=== PATIENT | male | born 1985 | race Caucasian/White ===

== ENCOUNTER 2018-12-11 02:20 | Outpatient (CLI) | payer MEDICARE, MEDICAID, SELFPAY | END 2018-12-11 02:40 | PROVIDERS: PCP Family Medicine; Visit Provider Internal Medicine Endocrinology, Diabetes & Metabolism | DX: E23.0 Hypopituitarism (principal) | CPT/HCPCS: 36415; 82533 ==

== ENCOUNTER 2020-11-25 00:33 | Outpatient (CLI) | payer MEDICARE, MEDICAID, SELFPAY ==
[2020-11-25 13:26] LABS: TSH 3.19 uIU/mL (0.36-3.74)
[2020-11-29 09:31] LABS: Testosterone, Total 476 ng/dL (240-950)
[2020-12-02 18:13] LABS: AM Cortisol 8.8 mcg/dL (5-25)
== END 2020-11-25 00:53 ==
PROVIDERS: PCP Family Medicine; Visit Provider Family Medicine
DX: E23.0 Hypopituitarism (principal); E29.1 Testicular hypofunction
CPT/HCPCS: 36415; 82530; 82533; 84403; 84439; 84443

== ENCOUNTER 2021-07-20 02:47 | Outpatient (CLI) | payer MEDICARE, MEDICAID, SELFPAY ==
[2021-07-20 12:59] LABS: FREE T4 1.07 ng/dL (0.76-1.46); TSH 1.35 uIU/mL (0.36-3.74)
[2021-07-20 13:15] LABS: Vitamin D 25 Total 36.4 ng/mL (30-100)
[2021-07-24 12:36] LABS: Testosterone, Total 567 ng/dL (240-950)
== END 2021-07-20 02:48 | disposition home or self-care (01) ==
LOC: LOS 02:47
PROVIDERS: PCP Family Medicine; Visit Provider Family Medicine
DX: E23.0 Hypopituitarism; E34.9 Endocrine disorder, unspecified
CPT/HCPCS: 36415; 82306; 82533; 84403; 84439; 84443

== ENCOUNTER 2021-11-16 04:18 | Outpatient (CLI) | payer MEDICARE, MEDICAID, SELFPAY ==
[2021-11-16 08:44] LABS: Abs Immature Grans 0.07 10^3/uL (0.0-0.06); Absolute Basophil Count 0.07 10^3/uL (0.0-0.2); Absolute Lymphocyte Count 2.02 10^3/uL (1.2-3.4); Absolute Monocyte Count 0.64 10^3/uL (0.1-0.8); Absolute Neutrophil Count 3.72 10^3/uL (1.2-6.7); Eosinophils % 7.1; HCT 50.5 % (40.0-50.0); HGB 17.6 g/dL (13.5-17.5); Lymphocytes % 28.8; MCH 30.9 pg (27.0-33.0); MCHC 34.9 % (32.0-36.0); MCV 88.8 fL (80-95); MPV 9.1 fL (8.0-11.0); Monocytes % 9.1; Nucleated RBC 0 %; Platelet Count 202 10^3/uL (130-400); RBC 5.69 10^6/uL (4.36-5.78); RDW 11.7 % (11.8-14.1); RDW-SD 37.8 fL; WBC 7.02 10^3/uL (4.4-10.8)
[2021-11-16 09:24] LABS: ALT 53 U/L (16-63); AST 27 U/L (15-37); Albumin 3.9 g/dL (3.4-5.0); Alkaline Phosphatase 66 U/L (46-116); Anion Gap 9.2 mmol/L (3-11); BUN 9 mg/dL (7-18); Bilirubin, Total 0.8 mg/dL (0.2-1.0); CO2 26.8 mmol/L (21.0-32.0); CREATININE 1.3 mg/dL (0.70-1.30); Calcium 9.1 mg/dL (8.5-10.1); Calculated LDL 105 mg/dL (<100); Chloride 101 mmol/L (98-107); Cholesterol 177 mg/dL (<200); Glucose 103 mg/dL (74-106); HDL Cholesterol 49 mg/dL (40-60); Potassium 3.9 mmol/L (3.5-5.1); Sodium 137 mmol/L (136-145); TSH (W/Ref FT4) 2.59 uIU/mL (0.36-3.74); Total Protein 7.1 g/dL (6.4-8.2); Triglyceride 118 mg/dL (<150)
[2021-11-21 15:52] LABS: Testosterone, Total 478 ng/dL (240-950)
== END 2021-11-16 04:19 | disposition home or self-care (01) ==
LOC: LBO 04:18
PROVIDERS: PCP Family Medicine; Visit Provider Family Medicine
DX: E23.0 Hypopituitarism (principal); E23.6 Other disorders of pituitary gland; Z13.6 Encounter for screening for cardiovascular disorders; I10 Essential (primary) hypertension
CPT/HCPCS: 36415; 80053; 80061; 84403; 84443; 85025

== ENCOUNTER 2022-05-25 02:05 | Outpatient (CLI) | payer MEDICARE, MEDICAID, SELFPAY ==
[2022-05-25 12:52] LABS: HCT 48.9 % (40.0-50.0); HGB 17.3 g/dL (13.5-17.5); MCH 31.7 pg (27.0-33.0); MCHC 35.4 % (32.0-36.0); MCV 90 fL (80-95); Platelet Count 220 10^3/uL (130-400); RBC 5.46 10^6/uL (4.36-5.78); RDW 11.7 % (11.8-14.1); RDW-SD 37.9 fL; WBC 6.63 10^3/uL (4.4-10.8)
[2022-05-25 13:08] LABS: ALT 44 U/L (16-63); AST 25 U/L (15-37); Albumin 3.8 g/dL (3.4-5.0); Alkaline Phosphatase 58 U/L (46-116); Anion Gap 9.6 mmol/L (3-11); BUN 15 mg/dL (7-18); Bilirubin, Total 0.7 mg/dL (0.2-1.0); CO2 26.4 mmol/L (21.0-32.0); CREATININE 1.4 mg/dL (0.70-1.30); Chloride 99 mmol/L (98-107); Estimated GFR 57.34 (mL/min/1.73m2); Glucose 129 mg/dL (74-106); Sodium 135 mmol/L (136-145); Total Protein 7.3 g/dL (6.4-8.2)
[2022-06-03 17:33] LABS: Testosterone, Total 147 ng/dL (240-950)
== END 2022-05-25 02:06 | disposition home or self-care (01) ==
LOC: LOS 02:05
PROVIDERS: PCP Nurse Practitioner Family; Visit Provider Family Medicine
DX: I10 Essential (primary) hypertension (principal); E23.6 Other disorders of pituitary gland; E23.0 Hypopituitarism; E34.8 Other specified endocrine disorders; Z13.6 Encounter for screening for cardiovascular disorders
CPT/HCPCS: 36415; 80053; 82533; 84403; 85027

== ENCOUNTER 2022-07-05 04:49 | Outpatient (CLI) | payer MEDICARE, MEDICAID, SELFPAY ==
[2022-07-11 10:00] LABS: Testosterone, Total 677 ng/dL (240-950)
== END 2022-07-05 04:50 | disposition home or self-care (01) ==
LOC: LOS 04:49
PROVIDERS: PCP Nurse Practitioner Family; Visit Provider Nurse Practitioner Family
DX: E29.1 Testicular hypofunction; E34.8 Other specified endocrine disorders
CPT/HCPCS: 36415; 84403

== ENCOUNTER 2022-08-16 02:32 | Outpatient (CLI) | payer MEDICARE, MEDICAID, SELFPAY ==
[2022-08-16 12:15] LABS: Abs Immature Grans 0.04 10^3/uL (0.0-0.06); Absolute Basophil Count 0.06 10^3/uL (0.0-0.2); Absolute Lymphocyte Count 2.17 10^3/uL (1.2-3.4); Absolute Monocyte Count 0.46 10^3/uL (0.1-0.8); Absolute Neutrophil Count 4.05 10^3/uL (1.2-6.7); Basophils % 0.8; Eosinophils % 6.9; HCT 49.3 % (40.0-50.0); HGB 17.2 g/dL (13.5-17.5); Immature Grans % 0.5; Lymphocytes % 29.8; MCH 31.6 pg (27.0-33.0); MCHC 34.9 % (32.0-36.0); MCV 91 fL (80-95); Monocytes % 6.3; Neutrophils % 55.7; Platelet Count 212 10^3/uL (130-400); RBC 5.45 10^6/uL (4.36-5.78); RDW 11.8 % (11.8-14.1); RDW-SD 38.8 fL; WBC 7.28 10^3/uL (4.4-10.8)
[2022-08-16 12:38] LABS: Anion Gap 9.2 mmol/L (3-11); BUN 12 mg/dL (7-18); CO2 26.8 mmol/L (21.0-32.0); CREATININE 1.4 mg/dL (0.70-1.30); Chloride 100 mmol/L (98-107); Glucose 161 mg/dL (74-106); Sodium 136 mmol/L (136-145)
[2022-08-16 12:58] LABS: Vitamin D 25 Total 37.1 ng/mL (30-100)
[2022-08-16 13:16] LABS: FREE T4 1.02 ng/dL (0.76-1.46)
[2022-08-16 13:18] LABS: CREATININE 1.4 mg/dL (0.70-1.30)
[2022-08-21 17:54] LABS: IGF-1, LC/MS, S 196 ng/mL (48-292); Z-score 0.84 SD
[2022-08-28 13:58] LABS: Testosterone, Free 28.5 ng/dL (4.65-18.1); Testosterone, Total 591 ng/dL (240-950)
== END 2022-08-16 02:33 | disposition home or self-care (01) ==
LOC: LOS 02:32
PROVIDERS: PCP Nurse Practitioner Family; Visit Provider Student in an Organized Health Care Education/Training Program
DX: R79.89 Other specified abnormal findings of blood chemistry (principal); E23.0 Hypopituitarism; E55.9 Vitamin D deficiency, unspecified
CPT/HCPCS: 36415; 80048; 82306; 82533; 84402; 84403; 82565; 84305; 84439; 85025

== ENCOUNTER 2023-08-01 05:08 | Outpatient (CLI) | payer MEDICARE, MEDICAID, SELFPAY ==
[2023-08-01 12:26] LABS: Abs Immature Grans 0.03 10^3/uL (0.0-0.06); Absolute Basophil Count 0.06 10^3/uL (0.0-0.2); Absolute Eosinophil Count 0.48 10^3/uL (0.0-0.7); Absolute Lymphocyte Count 1.67 10^3/uL (1.2-3.4); Absolute Neutrophil Count 3.26 10^3/uL (1.2-6.7); Eosinophils % 7.9; HCT 50.1 % (40.0-50.0); HGB 17.6 g/dL (13.5-17.5); Immature Grans % 0.5; Lymphocytes % 27.4; MCH 31.9 pg (27.0-33.0); MCHC 35.1 % (32.0-36.0); MCV 91 fL (80-95); MPV 10.2 fL (8.0-11.0); Monocytes % 9.8; Neutrophils % 53.4; Platelet Count 218 10^3/uL (130-400); RBC 5.51 10^6/uL (4.36-5.78); RDW 11.9 % (11.8-14.1); RDW-SD 39.8 fL
[2023-08-01 12:46] LABS: Anion Gap 8.3 mmol/L (3-11); BUN 13 mg/dL (7-18); CO2 27.7 mmol/L (21.0-32.0); CREATININE 1.5 mg/dL (0.70-1.30); Calcium 9.9 mg/dL (8.5-10.1); Calculated LDL 86 mg/dL (<100); Chloride 100 mmol/L (98-107); Cholesterol 155 mg/dL (<200); Estimated GFR 61.11 (mL/min/1.73m2); FREE T4 1.08 ng/dL (0.76-1.46); Glucose 101 mg/dL (74-106); HDL Cholesterol 53 mg/dL (40-60); Potassium 3.7 mmol/L (3.5-5.1); Sodium 136 mmol/L (136-145); Triglyceride 82 mg/dL (<150)
[2023-08-01 13:01] LABS: Vitamin D 25 Total 56.7 ng/mL (30-100)
[2023-08-05 16:29] LABS: IGF-1, LC/MS, S 220 ng/mL (48-292); Z-score 1.28 SD
[2023-08-11 10:06] LABS: Testosterone, Free 30.2 ng/dL (4.65-18.1); Testosterone, Total 585 ng/dL (240-950)
== END 2023-08-01 05:09 | disposition home or self-care (01) ==
LOC: LOS 05:09
PROVIDERS: PCP Nurse Practitioner Family; Visit Provider Student in an Organized Health Care Education/Training Program
DX: Z13.6 Encounter for screening for cardiovascular disorders (principal); E23.0 Hypopituitarism; E55.9 Vitamin D deficiency, unspecified
CPT/HCPCS: 36415; 80048; 80061; 82306; 82533; 84402; 84403; 84305; 84439; 85025

== ENCOUNTER 2024-07-30 02:56 | Outpatient (CLI) | payer MEDICARE, MEDICAID, SELFPAY ==
[2024-07-30 12:31] LABS: Abs Immature Grans 0.04 10^3/uL (0.0-0.06); Absolute Basophil Count 0.07 10^3/uL (0.0-0.2); Absolute Eosinophil Count 0.45 10^3/uL (0.0-0.7); Absolute Lymphocyte Count 1.89 10^3/uL (1.2-3.4); Absolute Monocyte Count 0.55 10^3/uL (0.1-0.8); Absolute Neutrophil Count 3.56 10^3/uL (1.2-6.7); Basophils % 1.1 %; Eosinophils % 6.9 %; HCT 51.3 % (40.0-50.0); HGB 17.9 g/dL (13.5-17.5); Immature Grans % 0.6 %; Lymphocytes % 28.8 %; MCH 31.8 pg (27.0-33.0); MCHC 34.9 % (32.0-36.0); MCV 91 fL (80-95); MPV 10.1 fL (8.0-11.0); Monocytes % 8.4 %; Neutrophils % 54.2 %; Platelet Count 209 10^3/uL (130-400); RBC 5.63 10^6/uL (4.36-5.78); RDW 11.9 % (11.8-14.1); RDW-SD 39.8 fL; WBC 6.56 10^3/uL (4.4-10.8)
[2024-07-30 13:06] LABS: Anion Gap 6.7 mmol/L (3-11); BUN 16 mg/dL (7-18); CO2 28.3 mmol/L (21.0-32.0); CREATININE 1.4 mg/dL (0.70-1.30); Calcium 9.4 mg/dL (8.5-10.1); Calculated LDL 81 mg/dL (<100); Chloride 101 mmol/L (98-107); Cholesterol 159 mg/dL (<200); Estimated GFR 65.98 (mL/min/1.73m2); FREE T4 0.99 ng/dL (0.76-1.46); Glucose 91 mg/dL (74-106); HDL Cholesterol 62 mg/dL (40-60); Potassium 3.7 mmol/L (3.5-5.1); Sodium 136 mmol/L (136-145); Triglyceride 81 mg/dL (<150); Vitamin D 25 Total 59.4 ng/mL (30-100)
[2024-07-30 13:13] LABS: Hemoglobin A1C 5.3 % (<5.7)
[2024-08-05 18:26] LABS: IGF-1, LC/MS, S 200 ng/mL (48-292); Z-score 1.04 SD
[2024-08-06 09:42] LABS: Testosterone, Free 29.2 ng/dL (4.65-18.1); Testosterone, Total 668 ng/dL (240-950)
== END 2024-07-30 02:57 | disposition home or self-care (01) ==
PROVIDERS: PCP Nurse Practitioner Family; Visit Provider Student in an Organized Health Care Education/Training Program
DX: Z13.1 Encounter for screening for diabetes mellitus (principal); Z13.6 Encounter for screening for cardiovascular disorders; E23.0 Hypopituitarism; E55.9 Vitamin D deficiency, unspecified
CPT/HCPCS: 36415; 80048; 80061; 82306; 82533; 84402; 84403; 83036; 84305; 84439; 85025

== ENCOUNTER 2024-11-05 04:09 | Outpatient (CLI) | payer MEDICARE, MEDICAID, SELFPAY ==
[2024-11-05 09:06] LABS: HCT 49.4 % (40.0-50.0)
[2024-11-07 10:45] LABS: Adrenocorticotropic Hormone, P 11 pg/mL
[2024-11-08 16:57] LABS: Testosterone, Total 219 ng/dL (240-950)
== END 2024-11-05 04:10 | disposition home or self-care (01) ==
LOC: LOS 04:09
PROVIDERS: PCP Nurse Practitioner Family; Visit Provider Student in an Organized Health Care Education/Training Program
DX: D75.1 Secondary polycythemia (principal)
CPT/HCPCS: 36415; 82533; 84403; 82024; 85014; 85018

== ENCOUNTER 2025-03-18 01:39 | Outpatient (CLI) | payer MEDICARE, MEDICAID, SELFPAY ==
[2025-03-18 07:56] LABS: HCT 48.1 % (40.0-50.0); HGB 16.8 g/dL (13.5-17.5)
[2025-03-18 08:30] LABS: FREE T4 0.98 ng/dL (0.76-1.46)
[2025-03-18 19:23] LABS: Prolactin 5.1 ng/mL (2.1-17.7)
[2025-03-20 11:27] LABS: Adrenocorticotropic Hormone, P 14 pg/mL
[2025-03-30 09:33] LABS: Testosterone, Free 16.6 ng/dL (4.65-18.1); Testosterone, Total 402 ng/dL (240-950)
[2025-04-02 08:38] LABS: IGF-1, LC/MS, S 185 ng/mL
[2025-04-02 08:41] LABS: Z-score 0.6 SD
== END 2025-03-18 01:40 | disposition home or self-care (01) ==
LOC: LBO 01:40
PROVIDERS: PCP Nurse Practitioner Family; Visit Provider Student in an Organized Health Care Education/Training Program
DX: E23.0 Hypopituitarism (principal); D75.1 Secondary polycythemia
CPT/HCPCS: 36415; 82533; 84402; 84403; 82024; 84146; 84305; 84439; 85014; 85018